=== PATIENT | male | born 1940 | race Caucasian/White ===

== ENCOUNTER 2020-08-15 05:43 | Day surgery (SDC) | payer MEDICARE, OTHER ==
[~2020-08-15] VITALS: Ht 172.7 cm; Wt 76.0 kg
[~2020-08-15 05:43] MED LIST: ASPIRIN E.C. 8181 MG PO; BUPROPION HCL150 M1 PO; CALCIUM 600MG+D1 TAB PO; CARDI-OMEGA1000 MG PO; CLONIDINE0.1 MG PO; COZAAR100 MG PO; D3-5050000 IU PO; FERROUS SU325 MG/TAB PO; FOLIC ACID 40400 MCG PO; LEXAPRO 5MG5 MG PO; LEXAPRO20 MG PO; LIPITOR 40MG TA40 MG PO; MEVACOR40 MG PO; MULTIVITAMIN SEN PO; NORCO 325 MG-7.1 TAB PO; NORVASC 10MG10 MG PO; PRILOSEC 20MG20 MG PO; PRILOSEC20 MG PO; RECLAST5 MG/100 M IV; ROXICODONE 55 MG/TAB; TESTOSTERON TOP; TRANXENE 3.753.75 MG PO; VENLAFAXINE75 MG PO; VITAMIN C PO; VITAMIN C500 MG PO
[2020-08-15 06:12] VITALS: BP 152/57; PULSE 57; TEMP 97.5
[2020-08-15 07:51] VITALS: BP 136/54; PULSE 60
--- NOTE | 2020-08-15 07:51 | NUR ---
Patient returns to room 8 per cart from surgery accompanied by Cuong SANTILLAN and Renzo Allen CRNA and is awake and alert. Temp 97.7 and room air sats 97%. Suprapubic connected to leg bag and pink tinged urine noted in bag. Denies pain or nausea. IV fluids infusing and spouse in room. Call light in reach and siderails up x2.
[2020-08-15 08:06] VITALS: BP 164/58; PULSE 57
--- NOTE | 2020-08-15 08:06 | NUR ---
Drinking water and sipping on Cranberry juice. Denies nausea or pain. Offered snack and refuses. States I will eat breakfast with my after discharge.
[2020-08-15 08:21] VITALS: BP 180/68; PULSE 57
--- NOTE | 2020-08-15 08:21 | NUR ---
Suprapubic continues to drain pink tinged urine. No clots or blood noted. IV discontinued and site is free of redness. Assisted patient with standing and ambulates to bathroom and able to empty leg bag by self. Urine less pink. Returns to room and dresses self.
--- NOTE | 2020-08-15 08:47 | NUR ---
Dismissal instructions given and voices understanding of these. Provided office number for questions and concerns. Given follow up appointment date and time.
--- NOTE | 2020-08-15 08:49 | NUR ---
Patient dismissed to home driven by spouse and taken to the front door per wheelchair and assisted into vehicle with instructions in hand.
== END 2020-08-15 08:49 | disposition home or self-care (01) ==
LOC: SDCO 05:43
DX: N21.0 Calculus in bladder (principal); K21.9 Gastro-esophageal reflux disease without esophagitis; F32.9 Major depressive disorder, single episode, unspecified; E78.00 Pure hypercholesterolemia, unspecified; I10 Essential (primary) hypertension; M81.0 Age-related osteoporosis without current pathological fracture; E78.5 Hyperlipidemia, unspecified; M19.90 Unspecified osteoarthritis, unspecified site; M85.80 Other specified disorders of bone density and structure, unspecified site; Z96.651 Presence of right artificial knee joint; Z85.46 Personal history of malignant neoplasm of prostate; Z90.89 Acquired absence of other organs; Z79.899 Other long term (current) drug therapy; Z88.5 Allergy status to narcotic agent; Z87.891 Personal history of nicotine dependence; Z79.82 Long term (current) use of aspirin
CPT/HCPCS: J0690; J1100; J2405; J2704; J3010; J7120